=== PATIENT | female | born 1965 | race Caucasian/White ===

== ENCOUNTER → 2021-01-18 | Outpatient (CLI) | payer OTHER ==
[2021-01-18 12:08] LABS: HEMOGLOBIN 12.1 gm/dl (12.3-15.3); RED BLOOD COUNT 4.04 M/UL (4.00-5.10); WHITE BLOOD COUNT 6.2 K/UL (4.5-11.0)
[2021-01-18 12:34] LABS: BUN/CREATININE RATIO 15 (0-10)
== END ==
LOC: LAB 11:08
PROVIDERS: Internal Medicine
DX: M79.643 Pain in unspecified hand (principal); G89.29 Other chronic pain; M35.9 Systemic involvement of connective tissue, unspecified; M25.50 Pain in unspecified joint; D89.89 Other specified disorders involving the immune mechanism, not elsewhere classified; Z92.29 Personal history of other drug therapy
CPT/HCPCS: 36415; 80053; 85025; 85652; 86140